=== PATIENT | female | born 1990 | race Caucasian/White ===

== ENCOUNTER 2019-04-02 09:23 | Emergency (ER) | payer OTHER, SELFPAY ==
[2019-04-02 10:05] VITALS: BP 134/89; PULSE 108; RESP 18; TEMP 38.2; O2SAT 100
--- NOTE | 2019-04-02 10:27 | ED.URI ---
HPI - URI/Sore Throat General Chief Complaint: Upper Respiratory Infection Stated Complaint: fever aches pains Time Seen by Provider: 04/02/19 10:20 Source: patient Mode of arrival: ambulatory Limitations: no limitations History of Present Illness HPI Narrative: Renetta San is a 28 yo female with no prior medical history who comes here for the fever and symptoms of myalgia and congestion x1-1/2 days Related Data Home Medications Medication Instructions Recorded Confirmed No Home Medications 04/02/19 04/02/19 Allergies Allergy/AdvReac Type Severity Reaction Status Date / Time No Known Allergies Allergy Verified 04/02/19 10:13 Review of Systems Review of Systems: Narrative: CONSTITUTIONAL: Has fever, chills, sweats. EYES: Denies visual changes, redness, discharge. ENT: Has rhinorrhea, congestion, sore throat, otalgia. CARDIOVASCULAR: Denies chest pain, palpitations, edema. RESPIRATORY: Denies dyspnea, wheezing, has cough GASTROINTESTINAL: Denies abdominal pain, nausea, vomiting, diarrhea. GENITOURINARY: Denies dysuria, hematuria, abnormal discharge SKIN: Denies rash or itching. MUSCULOSKELETAL: Denies acute back pain, joint pain, or myalgia. NEUROLOGIC: Denies numbness, or focal weakness. PSYCHIATRIC: Denies anxiety or depression. [facility] Family History Family History (Updated 04/02/19 @ 10:30 by Ruby Dennis CNP) Other Hypertension Social History Social History Smoking status: Never smoker Alcohol intake: current Substance use: never Comments At time of signature, I agree with nursing past medical, surgical, social and family history. There is no relevant family history pertinent to the presenting complaint. Exam Narrative: Exam Narrative: GENERAL: This is a well-nourished, well-developed patient, in mild distress. HEAD: normocephalic, atraumatic. EYES: PERRL. Sclera clear/white. Vision is grossly intact. EARS: External ears normal, auditory canals clear and without drainage, TMs normal without perforation. Hearing grossly intact. NOSE: External nose normal with nasal discharge, nares with redness, rhinorrhea. THROAT: Mucous membranes moist, posterior pharynx erythema NECK: Neck supple, non-tender without lymphadenopathy, masses or thyromegaly. CARDIOVASCULAR: Tachycardic family for a 34 but is still begets only gets numbness and rhythm without murmurs, gallops, or rubs. RESPIRATORY: Clear to auscultation. Breath sounds equal bilaterally. No wheezes, rales, or rhonchi. GASTROINTESTINAL: Abdomen soft, non-tender, nondistended. Bowel sounds are active. No hepato-splenomegaly, or palpable masses. No guarding. SKIN: warm, intact with no suspicious lesions or rash, good texture and turgor. NEURO: awake, alert, and oriented to person, place and time. There were no obvious focal neurologic abnormalities. Steady gait EXTREMITIES: Normal range of motion. No edema BACK: Nontender without deformity or crepitance. . Course Course Emergency Course: Flu test positive Started on Xofluza Vital Signs Vital signs: Vital Signs Temperature 100.8 F H 04/02/19 10:05 Pulse Rate 108 H 04/02/19 10:05 Respiratory Rate 18 04/02/19 10:05 Blood Pressure 134/89 04/02/19 10:05 Pulse Oximetry 100 04/02/19 10:05 Temperature 100.8 F H 04/02/19 10:05 Pulse Rate 108 H 04/02/19 10:05 Respiratory Rate 18 04/02/19 10:05 Blood Pressure 134/89 04/02/19 10:05 Pulse Oximetry 100 04/02/19 10:05 MDM - URI/Sore Throat Differential Diagnosis Differential diagnosis: Likely upper respiratory infection, influenza and other Discharge Plan Discharge Clinical Impression: Influenza Patient Disposition: Home, Self-Care Condition: Stable Instructions: Influenza (DC) Prescriptions: New Xofluza 40 mg tablet 40 mg PO ONCE Qty: 2 RF: 0 No Action No Home Medications RF: 0 Follow-up/Referrals: [facility]
== END 2019-04-02 10:40 | disposition home or self-care (01) ==
PROVIDERS: Emergency Provider Nurse Practitioner
DX: J11.1 Influenza due to unidentified influenza virus with other respiratory manifestations (principal)
CPT/HCPCS: 87804; 99203; G0463